=== PATIENT | male | born 1975 | race Caucasian/White ===

== ENCOUNTER 2024-05-08 07:56 | Observation (INO) ==
[2024-05-08 08:19] LABS: ABS Basophils 0.1 10^3/uL (0.0-0.1); ABS Lymphocytes 0.9 10^3/uL (1.0-4.8); ABS Monocytes 0.6 10^3/uL (0.0-1.1); ABS Neutrophils 10.1 10^3/uL (1.5-7.6); Eosinophil % 0.4 %; Hematocrit 44.1 % (38-53); Hemoglobin 15.2 g/dL (13.2-16.3); Lymphocyte % 7.9 %; Mean Corpuscular Hemoglobin 31.6 pg (27-33); Mean Corpuscular Hgb Conc 34.5 g/dL (31-36); Mean Corpuscular Volume 91.5 fL (80-97); Mean Platelet Volume 10.7 fL (7.5-11.2); Platelet Count 161 10^3/uL (150-450); Red Blood Count 4.82 10^6/uL (4.06-5.63); Red Cell Distribution Width 13.3 % (12-17); White Blood Count 11.7 10^3/uL (3.6-10.2)
[2024-05-08] MEDS: Famotidine IV 10 MG/ML 2 ml VIAL (20 mg) IV SLOW PU ONE (08:24)
[2024-05-08] MEDS: Lactated Ringers 1000 ml BAG 1,000 ML IV ONE ×2 (08:24→10:03)
[2024-05-08] MEDS: Prochlorperazine 5 mg/ml 2 ml VIAL (10 mg) IV ONE (08:24)
[2024-05-08 08:36] LABS: Venous Bicarbonate HCO3 25.9 mmol/L (24-28)
[2024-05-08] MEDS: Metoclopramide 5 MG/ML VIAL (10 mg) IV SLOW PU ONE (08:45)
[2024-05-08 08:47] LABS: Albumin 4.2 g/dL (3.2-5.2); Albumin/Globulin Ratio 1.8 (1-3); Calcium 9.1 mg/dL (8.6-10.3); Creatinine, Serum 1.06 mg/dL (0.67-1.17); Globulin 2.4 g/dL (2-4); Magnesium 1.5 mg/dL (1.9-2.7); Potassium 4.3 mmol/L (3.5-5.0); Total Bilirubin 0.6 mg/dL (0.2-1.0); Total Protein 6.6 g/dL (6.4-8.9); eGFR CKD-EPI 85.5 (>60)
[2024-05-08 08:52] LABS: INR 1.04 (0.85-1.14)
[2024-05-08 08:55] LABS: Urine Appearance Clear; Urine Bilirubin Negative (Negative); Urine Blood Negative (Negative); Urine Color Light-Yellow; Urine Glucose Negative (Negative); Urine Ketones 1+ (Negative); Urine Nitrite Negative (Negative); Urine Protein Negative (Negative); Urine Specific Gravity 1.016 (1.002-1.030); Urine Urobilinogen Negative (Negative)
[2024-05-08 09:49] LABS: High Sensitivity Troponin 1 Hr 5 pg/mL (<20)
[2024-05-08] MEDS: Haloperidol 5 mg/ml SDV IV/IM 5 MG/ML AMP IV SLOW PU ONE (10:32)
[2024-05-08] MEDS: Magnesium Sulfate 2 gm BAG 2 GM/50 ML BAG IVPB ONE (10:32)
[2024-05-08] MEDS ORDERED: Lorazepam PYXIS KEY PRN (11:24)
[2024-05-08] MEDS: LORazepam 2 mg VIAL 1 ml IV PUSH ONE (11:36)
[2024-05-08] MEDS: DOXYcycline 100 MG in NS 0.9% 250 ml 250 ML IVPB ONE (12:45)
[2024-05-08] MEDS: Trimethobenzamide *IM* 100 mg/ml 2 ml VIAL (200 mg) IM ONE (17:49)
[2024-05-08] MEDS: NS 0.9% 1000 ml BAG 1,000 ML IV SCH (22:37)
[2024-05-08] MEDS: cefTRIAXone 1 gm/50 mL D5W 1 GM/50 ML BAG IV SCH (22:37)
[2024-05-08] MEDS: DOXYcycline 100 MG in NS 0.9% 250 ml 250 ML IVPB SCH (22:50)
[2024-05-09] MEDS: Ondansetron 4 mg VIAL 2 MG/ML 2 ml VIAL IV PRN (01:27)
[2024-05-09] MEDS: Acetaminophen IV 1 GM/100ML 1,000 MG/100 ML BAG IV PRN (01:32)
[2024-05-09 07:28] LABS: ABS Basophils 0.1 10^3/uL (0.0-0.1); ABS Lymphocytes 1.2 10^3/uL (1.0-4.8); ABS Monocytes 1.2 10^3/uL (0.0-1.1); ABS Neutrophils 14.5 10^3/uL (1.5-7.6); Hematocrit 45.1 % (38-53); Hemoglobin 15.6 g/dL (13.2-16.3); Lymphocyte % 7.2 %; Mean Corpuscular Hemoglobin 31.8 pg (27-33); Mean Corpuscular Hgb Conc 34.7 g/dL (31-36); Mean Corpuscular Volume 91.8 fL (80-97); Mean Platelet Volume 10.6 fL (7.5-11.2); Platelet Count 171 10^3/uL (150-450); Red Blood Count 4.91 10^6/uL (4.06-5.63); Red Cell Distribution Width 13.2 % (12-17)
[2024-05-09 08:00] LABS: Calcium 9.2 mg/dL (8.6-10.3); Creatinine, Serum 0.93 mg/dL (0.67-1.17); Magnesium 1.8 mg/dL (1.9-2.7); Potassium 4.1 mmol/L (3.5-5.0)
[2024-05-09] MEDS: Magnesium Sulfate 2 gm BAG 2 GM/50 ML BAG IVPB ONE (08:51)
[2024-05-09] MEDS: Lidocaine PATCH 5% PATCH TRANSDERM SCH (12:48)
[2024-05-09] MEDS: Prochlorperazine 5 mg/ml 2 ml VIAL (10 mg) IV PRN (15:39)
[2024-05-09] MEDS: hydrALAZINE 20 mg/ml 1 ML Vial IV IV SLOW PU PRN (19:21)
[2024-05-09] MEDS: Iohexol 350 (CONTRAST) 500 ML MDV IV ONE (19:50)
[2024-05-10] MEDS: Lidocaine PATCH 5% PATCH TRANSDERM SCH (00:30)
[2024-05-10 07:52] LABS: ABS Lymphocytes 1.5 10^3/uL (1.0-4.8); ABS Nucleated RBC 0.01 10^3/ul; Hemoglobin 16.7 g/dL (13.2-16.3); Lymphocyte % 10.8 %; Mean Corpuscular Hemoglobin 31.6 pg (27-33); Mean Corpuscular Hgb Conc 34.7 g/dL (31-36); Mean Corpuscular Volume 91.1 fL (80-97); Mean Platelet Volume 9.7 fL (7.5-11.2); Nucleated Red Blood Cells % 0.1 %/100WBC (0.0-0.8); Platelet Count 172 10^3/uL (150-450); Red Blood Count 5.27 10^6/uL (4.06-5.63); White Blood Count 13.5 10^3/uL (3.6-10.2)
[2024-05-10 08:28] LABS: Calcium 9.5 mg/dL (8.6-10.3); Creatinine, Serum 0.9 mg/dL (0.67-1.17); Magnesium 1.8 mg/dL (1.9-2.7); Potassium 3.8 mmol/L (3.5-5.0)
[2024-05-10] MEDS: Magnesium Sulfate 2 gm BAG 2 GM/50 ML BAG IVPB ONE (10:05)
[2024-05-10] MEDS: Ondansetron ODT 4 mg TAB 4 MG TAB SL PRN (17:35)
[2024-05-11] MEDS: Lidocaine PATCH 5% PATCH TRANSDERM ONE (01:09)
[2024-05-11 08:28] LABS: ABS Lymphocytes 1.9 10^3/uL (1.0-4.8); ABS Monocytes 1.1 10^3/uL (0.0-1.1); ABS Neutrophils 8.7 10^3/uL (1.5-7.6); Eosinophil % 0.2 %; Hematocrit 48.1 % (38-53); Hemoglobin 16.8 g/dL (13.2-16.3); Lymphocyte % 15.9 %; Mean Corpuscular Hemoglobin 31.5 pg (27-33); Mean Corpuscular Hgb Conc 34.8 g/dL (31-36); Mean Corpuscular Volume 90.5 fL (80-97); Platelet Count 165 10^3/uL (150-450); Red Blood Count 5.32 10^6/uL (4.06-5.63); Red Cell Distribution Width 13.2 % (12-17); White Blood Count 11.7 10^3/uL (3.6-10.2)
[2024-05-11 10:02] LABS: Calcium 9.5 mg/dL (8.6-10.3); Potassium 3.9 mmol/L (3.5-5.0); eGFR CKD-EPI 91.7 (>60)
[2024-05-11 10:09] VITALS: BP 152/118
== END 2024-05-11 14:00 | disposition home or self-care (01) ==
LOC: ED 07:56 → EDHOLD 07:56 → MED 23:06
PROVIDERS: ADMIT Student in an Organized Health Care Education/Training Program; ATTEND Student in an Organized Health Care Education/Training Program